=== PATIENT | female | born 1985 | race American Indian/Alaskan Native ===

== ENCOUNTER 2017-06-25 17:11 | Emergency (ER) | payer MEDICAID | END 2017-06-25 18:50 | disposition left against medical advice (07) | LOC: ED 17:11 | DX: M79.1 Myalgia (principal); Z53.21 Procedure and treatment not carried out due to patient leaving prior to being seen by health care provider ==

== ENCOUNTER 2017-11-11 09:21 | Outpatient (CLI) | payer MEDICAID ==
[2017-11-11 10:20] LABS: Basophils % (Auto) 0.3 % (0.0-1.8); Eosinophils # (Auto) 0.1 K/mm3 (0.0-0.4); Eosinophils % (Auto) 0.5 % (0.0-4.3); Hematocrit 30.2 % (30.3-42.9); Hemoglobin 9.9 gm/dl (10.1-14.3); Lymphocytes # (Auto) 2.3 K/mm3 (1.2-5.4); Lymphocytes % (Auto) 20.5 % (13.4-35.0); Mean Corpuscular HGB Conc 33 % (30-34); Mean Corpuscular Hemoglobin 29 pg (28-32); Mean Corpuscular Volume 89 fl (79-97); Monocytes # (Auto) 0.7 K/mm3 (0.0-0.8); Platelet Count 317 K/mm3 (140-440); Red Blood Count 3.39 M/mm3 (3.65-5.03); Red Cell Distribution Width 14.7 % (13.2-15.2)
--- NOTE | 2017-11-11 15:29 | Ultrasound Report ---
BIOPHYSICAL PROFILE: Bleeding. 2 - breathing movements 2 - movements 2 - posture and tone 2 - Qualitative amniotic fluid volume 2 - TOTAL SCORE OF POSSIBLE 8 Heart Rate (bpm) 125 Estimated gestational age 36 weeks 4 days. LIMITED OB ULTRASOUND: Bleeding Gestation: Jones Position: Cephalic SERGO = 12.7 cm Placenta: Left lateral, posterior Placental Grade: 1 Heart Rate: 128 BPM No evidence of abruption.
== END 2017-11-11 10:24 | disposition home or self-care (01) ==
LOC: TRG 09:21
PROVIDERS: ATTEND Obstetrics & Gynecology
DX: O47.03 False labor before 37 completed weeks of gestation, third trimester (principal); Z3A.36 36 weeks gestation of pregnancy
CPT/HCPCS: 36415; 59025; 76815; 76819; 85025; 86850; 86900; 86901